=== PATIENT | female | born 1955 | race Caucasian/White ===

== ENCOUNTER 2024-07-29 06:54 | Day surgery (SDC) | payer BC, MEDICARE ==
[2024-07-29] MEDS ORDERED: Lidocaine 2% 100 MG/5 ML Syringe IVPUSH ONE (06:55)
[2024-07-29] MEDS ORDERED: Propofol 200 MG/20 ML SDV IV ONE (06:55)
[2024-07-29] MEDS ORDERED: Sodium Chloride 0.9% 10 ML Syringe FLUSH PRN (07:00)
[2024-07-29] MEDS: Lactated Ringers 1,000 ML IV SCH (07:45)
[2024-07-29] MEDS: Simethicone Drops 40 MG/0.6 ML 30 ML Bottle ONE (08:31)
== END 2024-07-29 10:25 | disposition home or self-care (01) ==
LOC: FB.SDS 06:54
PROVIDERS: ATTEND Surgery
DX: Z12.11 Encounter for screening for malignant neoplasm of colon (principal); D12.2 Benign neoplasm of ascending colon; F32.A Depression, unspecified; Z79.899 Other long term (current) drug therapy
CPT/HCPCS: 00811; 45385; 88305; A9270; J2704; J7120